=== PATIENT | female | born 1990 | race African-American/Black ===

== ENCOUNTER 2016-09-23 06:26 | Emergency (ER) | payer OTHER ==
[~2016-09-23] VITALS: Ht 180.3 cm; Wt 68.0 kg
[~2016-09-23 06:26] MED LIST: AZIT250T PO; HYDR-2666 PO; PRED20TA PO
[2016-09-23 06:55] LABS: POTASSIUM ISTAT 3.5 mmol/L (3.5-5.0)
[2016-09-23] MEDS ORDERED: FENTANYL PF 100 MCG/2 ML VIAL. IV ONE (07:00)
[2016-09-23] MEDS ORDERED: DIAZEPAM 10 MG/2 ML DISP.SYRIN. IV ONE (07:00)
--- NOTE | 2016-09-23 07:44 | PHYS DOC ---
Past Medical History Past Medical History: Asthma Past Surgical History: No Surgical History Additional Past Surgical Histo: L) ring finger-tip"put back on." Alcohol Use: Occasionally Drug Use: None Adult General Chief Complaint Chief Complaint: UPPER EXTREMITY PAIN HPI HPI Patient is a 25 year old female who presents with R arm pain from shoulder through hand with swelling. 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 She does have increased pain with movement. No recent IV sticks or h/o DVT. In terms of one day, not attempted any symptom controlling medication on home. No known injury. Review of Systems Review of Systems Constitutional: Denies fever or chills [] Eyes: Denies change in visual acuity, redness, or eye pain [] HENT: Denies nasal congestion or sore throat [] Respiratory: Denies cough or shortness of breath [] Cardiovascular: denies chest pain GI: Denies abdominal pain, nausea, vomiting, bloody stools or diarrhea [] : Denies dysuria or hematuria [] Musculoskeletal: Denies back pain Integument: Denies rash or skin lesions [] Neurologic: Denies headache, focal weakness or sensory changes [] Current Medications Current Medications Current Medications Medications (Trade) Dose Ordered Sig/Meng Start Time Stop Time Status Last Admin Dose Admin Diazepam (Valium) 5 mg 1X ONCE 09/23/16 07:00 09/23/16 07:01 DC 09/23/16 07:07 5 MG Fentanyl Citrate (Fentanyl 2ml Vial) 50 mcg 1X ONCE 09/23/16 07:00 09/23/16 07:01 DC 09/23/16 07:06 50 MCG Allergies Allergies Allergies Coded Allergies Type Severity Reaction Last Updated Verified Penicillins Allergy Intermediate 06/19/14 Yes iodine Allergy Intermediate 06/19/14 Yes Sulfa (Sulfonamide Antibiotics) Allergy Unknown Anaphylaxis 01/05/15 Yes Physical Exam Physical Exam Constitutional: Well developed, well nourished, tearful with pain, non-toxic appearance. [] HENT: Normocephalic, atraumatic, bilateral external ears normal, oropharynx moist, no oral exudates, nose normal. [] Eyes: PERRLA, EOMI, conjunctiva normal, no discharge. [] Neck: Normal range of motion, nomidline stepoffs or tenderness, supple, no stridor. [] Cardiovascular:Heart rate regular with regular rhythm, no murmur [] Lungs & Thorax: Bilateral breath sounds clear to auscultation, no wheeze or crackles Abdomen: Bowel sounds normal, soft, no tenderness, no masses, no pulsatile masses. [] Skin: Warm, dry, no erythema, no rash. [] Back: No tenderness, no CVA tenderness. [] Extremities: RUE with trace edema of the hand, no erythema or increased warmth, FROM, generalized ttp, normal sensory, FROM hand Neurologic: Alert and oriented X 3, normal motor function, normal sensory function, no focal deficits noted. [] Psychologic: Affect normal, judgement normal, mood normal. [] Current Patient Data Vital Signs Vital Signs Date Time Temp Pulse Resp B/P Pulse Ox O2 Delivery O2 Flow Rate FiO2 09/23/16 07:06 16 Room Air 09/23/16 06:41 97.9 53 112/57 98 97.9 Lab Values Laboratory Tests Test 09/23/16 05:57 09/23/16 06:52 POC Urine HCG, Qualitative Hcg negative (Negative) POC Hemoglobin 13.6g/dL (12-15) POC Hematocrit 40% (36-40) POC Sodium 142mmol/L (135-145) POC Potassium 3.5mmol/L (3.5-5.0) POC Chloride 104mmol/L (98-110) POC Total CO2 24mmol/L (23-32) Anion Gap 19mmol/L (6-14) H POC Blood Urea Nitrogen 8mg/dL (8-26) POC Creatinine 0.7mg/dL (0.5-1.4) Glucose Level 96mg/dL (70-99) POC Ionized Calcium (Raymond) 1.20mmol/L (1.13-1.32) Laboratory Tests 09/23/16 06:52 EKG EKG [] Radiology/Procedures Radiology/Procedures RUE venous doppler: Right upper extremity venous Doppler ultrasound History: Right arm pain and swelling. Comparison: None. Procedure: Color Doppler, spectral Doppler, and grayscale images are obtained with and without compression of the upper extremity veins. Imaging included the internal jugular, subclavian, axillary, brachial, cephalic, ulnar, radial, and basilic veins. Findings: There is normal flow and compressibility of all visualized vein segments. No venous thrombosis is identified. Impression: No evidence of right upper extremity venous thrombosis. [] Course & Med Decision Making Course & Med Decision Making Pertinent Labs and Imaging studies reviewed. (See chart for details) pt given IV pain meds and valium. Pt feeling improved. Kidney function normal , no DVT on US. Likley 2/2 to overuse. Pt dc'd with ibuprofen and norco, 3 day work not for rest, return precautions given. Referrral sheet given for pt to f/u Johnathan Disclaimer Johnathan Disclaimer This electronic medical record was generated, in whole or in part, using a voice recognition dictation system. Departure Departure Impression: Primary Impression: Arm pain Disposition: HOME, SELF-CARE Condition: IMPROVED Referrals: NO PCP (PCP) Scripts Hydrocodone/Apap 5-325 ([place] 5-325 Tablet)1 Each Tablet1-2 Tab PO Q4-6HRS PRN PAIN #12 TAB Prov:HERNANDEZ LATHAM MD 09/23/16 Ibuprofen 600 Mg [id number] Mg PO PRN TID PRN PAIN #20 TAB take with food or milk Prov:HERNANDEZ LATHAM MD 09/23/16 HERNANDEZ LATHAM MD Sep 23, 2016 07:44
--- NOTE | 2016-09-23 07:47 | RAD ---
Right upper extremity venous Doppler ultrasound History: Right arm pain and swelling. Comparison: None. Procedure: Color Doppler, spectral Doppler, and grayscale images are obtained with and without compression of the upper extremity veins. Imaging included the internal jugular, subclavian, axillary, brachial, cephalic, ulnar, radial, and basilic veins. Findings: There is normal flow and compressibility of all visualized vein segments. No venous thrombosis is identified. Impression: No evidence of right upper extremity venous thrombosis.
[2016-09-23] MEDS ORDERED: IBUP-985 PO (08:34)
[2016-09-23] MEDS ORDERED: HYDR-971 PO (08:34)
[2016-09-23 09:16] VITALS: BP 107/67
== END 2016-09-23 09:16 | disposition home or self-care (01) ==
LOC: ER 06:26
DX: M79.601 Pain in right arm (principal); M79.89 Other specified soft tissue disorders; J45.909 Unspecified asthma, uncomplicated; Z88.0 Allergy status to penicillin; Z88.2 Allergy status to sulfonamides; Z88.8 Allergy status to other drugs, medicaments and biological substances
CPT/HCPCS: 80047; 81025; 93971; 96374; 96375; 99284; J3010; J3360

== ENCOUNTER → 2016-10-13 | Outpatient (CLI) | payer OTHER ==
[2016-09-23 09:16] VITALS: BP 107/67
[~2016-10-13] MED LIST changes: +HYDR-971 PO; +IBUP-985 PO
[2016-10-13 11:59] LABS: CREATININE 0.8 mg/dL (0.6-1.0); GFR 106.6
--- NOTE | 2016-10-13 13:58 | RAD ---
Right shoulder, 3 views, 10/13/2016: History: Shoulder pain and numbness No fracture or dislocation is identified. No significant arthritic change is seen. The soft tissues are unremarkable. IMPRESSION: No significant right shoulder abnormality is detected.
== END | disposition home or self-care (01) ==
LOC: RAD 11:06
PROVIDERS: ATTEND Psychiatry & Neurology Neurology
DX: R20.0 Anesthesia of skin (principal); M25.511 Pain in right shoulder
CPT/HCPCS: 36415; 73030; 82550; 82565; 82607; 84443; 84520

== ENCOUNTER 2017-04-28 08:19 | Emergency (ER) | payer SELFPAY ==
[~2017-04-28] VITALS: Ht 170.2 cm; Wt 72.6 kg
[~2017-04-28 08:19] MED LIST changes: -HYDR-2666 PO; +HYDR-2758 PO
[2017-04-28 08:44] VITALS: BP 115/79
--- NOTE | 2017-04-28 08:55 | PHYS DOC ---
Past Medical History Past Medical History: Asthma Past Surgical History: No Surgical History Additional Past Surgical Histo: L) ring finger-tip"put back on." Additional Information: pt reports that she has not smoked cigars in 2 days as she cant breath when she does Alcohol Use: Occasionally Drug Use: None Adult General Chief Complaint Chief Complaint: ASTHMA HPI HPI Patient is a 26 year old female with history of asthma who presents today with a productive cough and wheezing for 2 days. Patient is also complaining of body aches nausea vomiting and diarrhea. Denies any chance she is . Denies any fever. Review of Systems Review of Systems Constitutional: Reports body aches. Denies fever or chills [] Eyes: Denies change in visual acuity, redness, or eye pain [] HENT: Denies nasal congestion or sore throat [] Respiratory: Reports a productive cough with wheezing, denies shortness of breath [] Cardiovascular: No additional information not addressed in HPI [] GI: Reports nausea vomiting and diarrhea in his any abdominal pain : Denies dysuria or hematuria [] Musculoskeletal: Denies back pain or joint pain [] Integument: Denies rash or skin lesions [] Neurologic: Denies headache, focal weakness or sensory changes [] All other systems were reviewed and found to be within normal limits, except as documented in this note. Current Medications Current Medications Current Medications Medications (Trade) Dose Ordered Sig/Meng Start Time Stop Time Status Last Admin Dose Admin Albuterol/ Ipratropium (Duoneb) 3 ml 1X ONCE 04/28/17 09:00 04/28/17 09:01 DC 04/28/17 09:55 3 ML Ondansetron HCl (Zofran Odt) 4 mg 1X ONCE 04/28/17 09:00 04/28/17 09:01 DC 04/28/17 09:07 4 MG Prednisone (Prednisone) 50 mg 1X ONCE 04/28/17 09:00 04/28/17 09:01 DC 04/28/17 09:07 50 MG Allergies Allergies Allergies Coded Allergies Type Severity Reaction Last Updated Verified Penicillins Allergy Intermediate 06/19/14 Yes iodine Allergy Intermediate 06/19/14 Yes Sulfa (Sulfonamide Antibiotics) Allergy Unknown Anaphylaxis 01/05/15 Yes Physical Exam Physical Exam Constitutional: Well developed, well nourished, no acute distress, non-toxic appearance. [] HENT: Normocephalic, atraumatic, bilateral external ears normal, oropharynx moist, no oral exudates, nose normal. [] Eyes: PERRLA, EOMI, conjunctiva normal, no discharge. [] Neck: Normal range of motion, no tenderness, supple, no stridor. [] Cardiovascular:Heart rate regular rhythm, no murmur [] Lungs & Thorax: Patient has scattered wheezing throughout her lung bases Abdomen: Bowel sounds normal, soft, no tenderness, no masses, no pulsatile masses. [] Skin: Warm, dry, no erythema, no rash. [] Back: No tenderness, no CVA tenderness. [] Extremities: No tenderness, no cyanosis, no clubbing, ROM intact, no edema. [] Neurologic: Alert and oriented X 3, normal motor function, normal sensory function, no focal deficits noted. [] Psychologic: Affect normal, judgement normal, mood normal. [] Current Patient Data Vital Signs Vital Signs Date Time Temp Pulse Resp B/P (MAP) Pulse Ox O2 Delivery O2 Flow Rate FiO2 04/28/17 09:55 96 Room Air 04/28/17 08:44 98.7 84 18 115/79 (91) 98.7 Lab Values Laboratory Tests Test 04/28/17 08:47 POC Urine HCG, Qualitative Hcg negative (Negative) EKG EKG [] Radiology/Procedures Radiology/Procedures []PROCEDURE: CHEST PA & LATERAL Indication: Cough, chills, headache, nausea and vomiting for 3 to 4 days Technique: PA and lateral views the chest Comparison: None Findings: Heart is normal in size. Lungs are clear. No pneumothorax or pleural effusion. Visualized bony thorax is within normal limits. Impression: No acute cardiopulmonary process. DICTATED and SIGNED BY: ELIA ZEPEDA DO DATE: 04/28/17 0936 CC: DWAYNE BOLAND APRN; NO PCP; NON,STAFF ~ Course & Med Decision Making Course & Med Decision Making Pertinent Labs and Imaging studies reviewed. (See chart for details) Patient is in the ED with a productive cough for 2 days with wheezing, she is also complaining of body aches nausea vomiting and diarrhea. Chest x-ray interpreted by radiologist is negative for any acute findings. Patient was wheezing on arrival to the ED. She was given a DuoNeb treatment prednisone and Zofran. Her lungs cleared up. She has no nausea vomiting in the ED. Her nausea vomiting and diarrhea probably viral. Instructed push fluids maintain good hand hygiene. Recommended following up with the PCP. Discharged with Zofran prednisone for 4 more days and albuterol inhaler. Given prescription for Tessalon Perles. Zyrtec also recommended. Rnoon Disclaimer Ronon Disclaimer This electronic medical record was generated, in whole or in part, using a voice recognition dictation system. Departure Departure Impression: Primary Impression: Nausea and vomiting Additional Impressions: Diarrhea Asthma exacerbation Disposition: 01 HOME, SELF-CARE Condition: STABLE Referrals: NO PCP (PCP) follow up with your doctor in one week Patient Instructions: Diarrhea, [id number], Nausea and Vomiting, [id number] Additional Instructions: You were seen with asthma exacerbation symptoms. Use breathing treatments as prescribed. Take prednisone as prescribed. Please consider taking an allergy medicines like Zyrtec every day. Your nausea vomiting and diarrhea are probably viral. Push fluids maintain good hand hygiene. Come back to the ED if symptoms worsen. Scripts Cetirizine Hcl (ZYRTEC) 10 Mg Tablet 1 TAB PO DAILY, #30 TAB 2 Refills Prov: DWAYNE BOLAND APRN 04/28/17 Prednisone (PREDNISONE) 50 Mg Tablet 1 TAB PO DAILY, #4 TAB Prov: DWAYNE BOLAND APRN 04/28/17 Benzonatate (TESSALON PERLE) 100 Mg Capsule 1 CAP PO TID, #30 CAP Prov: DWAYNE BOLAND ELECTRICAL MANAGER 04/28/17 Albuterol Sulfate (Proair Respiclick) 90 Mcg Aer.pow.ba 1 PUFF IH PRN Q6HRS Y for SHORTNESS OF BREATH, #1 INHALER 1 Refill Prov: DWAYNE BOLAND APRN 04/28/17 Ondansetron (ZOFRAN ODT) 4 Mg Tab.rapdis 1 TAB SL Q8HRS, #15 TAB Prov: DWAYNE BOLAND APRN 04/28/17 Problem Qualifiers Primary Impression: Nausea and vomiting Vomiting type: unspecified Vomiting Intractability: unspecified Qualified Codes: R11.2 - Nausea with vomiting, unspecified Additional Impressions: Diarrhea Diarrhea type: unspecified type Qualified Codes: R19.7 - Diarrhea, unspecified Asthma exacerbation Asthma severity: mild Asthma persistence: unspecified Qualified Codes: J45.901 - Unspecified asthma with (acute) exacerbation MUTUNGA,DWAYNE ELECTRICAL MANAGER Apr 28, 2017 08:55
[2017-04-28] MEDS ORDERED: predniSONE 10 MG TABLET PO ONE (09:00)
[2017-04-28] MEDS ORDERED: ONDANSETRON ODT 4 MG TAB.RAPDIS. PO ONE (09:00)
[2017-04-28] MEDS ORDERED: IPRATRPIUM/ALBUTEROL 0.5/2.5MG 3 ML NEBU. NEB ONE (09:00)
--- NOTE | 2017-04-28 09:47 | RAD ---
Indication: Cough, chills, headache, nausea and vomiting for 3 to 4 days Technique: PA and lateral views the chest Comparison: None Findings: Heart is normal in size. Lungs are clear. No pneumothorax or pleural effusion. Visualized bony thorax is within normal limits. Impression: No acute cardiopulmonary process.
[2017-04-28] MEDS ORDERED: CETI10TA22 PO (10:18)
[2017-04-28] MEDS ORDERED: ONDA4TAB10 SL (10:18)
[2017-04-28] MEDS ORDERED: BENZ100C PO (10:18)
[2017-04-28] MEDS ORDERED: PROAIR RESPICL90 MCG IH (10:18)
[2017-04-28] MEDS ORDERED: PRED50TA PO (10:18)
[2017-04-28 10:32] LABS: BILIRUBIN,URINE NEGATIVE (NEG); GLUCOSE,URINE NEGATIVE (NEG); NITRITE,URINE NEGATIVE (NEG); PROTEIN,URINE NEGATIVE (NEG-TRACE)
[2017-04-28 10:48] LABS: BACTERIA,URINE 0 /HPF (0-FEW); RBC,URINE 0 /HPF (0-2); SQUAMOUS EPITHELIAL CELL,UR MOD /LPF; WBC,URINE 0 /HPF (0-4)
== END 2017-04-28 10:26 | disposition home or self-care (01) ==
LOC: ER 08:19
DX: J45.901 Unspecified asthma with (acute) exacerbation (principal); R11.2 Nausea with vomiting, unspecified; R19.7 Diarrhea, unspecified; F17.200 Nicotine dependence, unspecified, uncomplicated; Z88.0 Allergy status to penicillin; Z88.2 Allergy status to sulfonamides; Z91.041 Radiographic dye allergy status
CPT/HCPCS: 71020; 81001; 81025; 94250; 94640; 99285; J7512; J7620; Q0162